=== PATIENT | male | born 1995 | race Caucasian/White ===

== ENCOUNTER 2019-06-05 13:44 | Outpatient (CLI) | payer OTHER ==
--- NOTE | 2019-06-05 14:21 | RAD ---
RADIOGRAPH CHEST 2 VIEWS: DATE: 06/05/2019 HISTORY: 24-year-old male with primary spontaneous pneumothorax. COMPARISON: None available. FINDINGS: The lungs are clear. The cardiomediastinal silhouette and hilar shadows appear normal. There is no pl eural effusion or pneumothorax. No osseous abnormality is identified. There is a small bore pleural catheter with distal tip at the right upper pleural surface. IMPRESSION: 1. Right Heimlich valve pleural catheter. 2. No pneumothorax visible. 3. Otherwise normal.
== END 2019-06-05 13:45 | disposition home or self-care (01) ==
LOC: RAD 13:44
PROVIDERS: ATTEND Thoracic Surgery (Cardiothoracic Vascular Surgery)
DX: J93.11 Primary spontaneous pneumothorax (principal); Z97.8 Presence of other specified devices
CPT/HCPCS: 71046